=== PATIENT | female | born 1950 | race Caucasian/White ===

== ENCOUNTER 2017-01-20 07:44 | Emergency (ER) ==
[2017-01-20 07:56] VITALS: BP 165/92; TEMP 97; BMI 36.2
--- NOTE | 2017-01-20 08:17 | ED.PDOC ---
General ED Provider: Dr. GIANA JOYA JR Chief Complaint: Respiratory Complaint Stated Complaint: Chest congestion, cough. States chest feels "warm". No fever in triage. Voice hoarse. Throat feels "dry".[End 3 days 97.0 84 20 99% 164/92 5/ 10 Time Seen by Physician: 08:05 Mode of Arrival: Walk-In Information Source: Patient Exam Limitations: No limitations Nursing and Triage Documentation Reviewed and Agree: No Review of Systems - Review Of Systems Constitutional: Reports: Malaise, Weakness Eyes: Reports: No symptoms Ears, Nose, Mouth, Throat: Reports: No symptoms Respiratory: Reports: Cough Cardiac: Reports: Palpitations. Denies: Chest pain (warm feeling) GI: Reports: No symptoms : Reports: No symptoms Musculoskeletal: Reports: No symptoms Skin: Reports: No symptoms Neurological: Reports: No symptoms Endocrine: Reports: No symptoms Hematologic/Lymphatic: Reports: No symptoms All Other Systems: Other Past Medical History - Past Medical History Endocrine: Reports: None Cardiovascular: Reports: Hypertension Respiratory: Reports: PE (htn PE, Vena Cava filter) Hematological: Reports: None Gastrointestinal: Reports: None Genitourinary: Reports: None Neuro/Psych: Reports: None Musculoskeletal: Reports: None Cancer: Reports: None Last Menstrual Period: unknown - Surgical History General Surgical History: Reports: None - Family History Family History: Reports: Heart (mother 60s stroke or heart attack), Cancer ( father 70s unknown type) - Social History Smoking Status: Former smoker Hx Substance Use: No Alcohol Screening: Heavy Physical Exam - Physical Exam Appearance: Well-appearing, Obese Ill-appearing: Mild Pain Distress: Mild Eyes: CANELO, EOMI, Conjunctiva clear ENT: Ears normal, Nose normal, Oropharynx normal Neck: Supple Respiratory: Airway patent, Breath sounds clear, Breath sounds equal, Respirations nonlabored Cardiovascular: RRR, Pulses normal, No rub, No murmur GI/: Soft, Nontender, No masses, Bowel sounds normal, No Organomegaly Musculoskeletal: Normal strength, ROM intact, No edema, No calf tenderness Skin: Warm, Dry, Normal color Neurological: Sensation intact, Motor intact, Reflexes intact, Cranial nerves intact, Alert, Oriented Psychiatric: Affect appropriate, Mood appropriate Interpretation - Radiology Interpretation Radiology Interpretation By: Radiologist Radiology Results: Negative Exam Interpreted: CXR - EKG Interpretation Time of EKG #1: 09:20 Rate: Normal Rhythm: Sinus Ectopy: None Mcguffey: NL ST Segment: Other (t-wave flattening no inversion) Critical Care Note - Critical Care Note Total Time (mins): 0 Course - Course Hematology/Chemistry: 01/20/17 08:25 01/20/17 08:25 Orders, Labs, Meds: Lab Review 01/20/17 01/20/17 08:25 08:34 WBC 5.12 RBC 4.73 Hgb 14.5 Hct 42.8 MCV 90.5 MCH 30.7 MCHC 33.9 RDW Coeff of Armaan 13.8 Plt Count 259 Immature Gran % (Auto) 0.4 Neut % (Auto) 63.7 Lymph % (Auto) 23.0 [place] % (Auto) 9.6 Eos % (Auto) 2.5 Baso % (Auto) 0.8 Immature Gran # (Auto) 0.0 Neut # 3.3 Lymph # 1.2 [place] # 0.5 Eos # 0.1 Baso # 0.0 PT 42.8 H INR 4.16 H* Sodium 142 Potassium 4.1 Chloride 107 Carbon Dioxide 27 Anion Gap 12.1 BUN 15 Creatinine 0.85 Estimated GFR (MDRD) 67.00 BUN/Creatinine Ratio 17.64 Glucose 102 Calcium 9.2 Total Bilirubin 1.04 AST 20 ALT 22 Alkaline Phosphatase 69 Total Protein 7.4 Albumin 4.0 Globulin 3.4 Albumin/Globulin Ratio 1.18 Procalcitonin < 0.05 Influenza A (Rapid) Negative Influenza B (Rapid) Negative Orders Category Date Time Status EKG-(ED ONLY) Stat CARDIO 01/20/17 09:03 Completed CBC W/ AUTO DIFF Stat LAB 01/20/17 08:25 Completed COMPREHENSIVE METABOLIC PANEL Stat LAB 01/20/17 08:25 Completed MOLECULAR GROUP A STREP Stat LAB 01/20/17 08:25 Results PROCALCITONIN Stat LAB 01/20/17 08:25 Completed PT WITH INR Stat LAB 01/20/17 08:34 Completed RAPID FLU A/B Stat LAB 01/20/17 08:25 Completed STREP SCREEN Stat LAB 01/20/17 08:25 Results CHEST, 2 VIEWS PA & LAT Stat RADS 01/20/17 08:05 Completed Vital Signs: Temp Pulse Resp BP Pulse Ox 01/20/17 07:47 97.0 F L 84 20 165/92 H 99 Departure - Departure Time of Disposition: 09:21 Disposition: HOME SELF-CARE Discharge Problem: Anticoagulation excessive URTI (infection of the upper respiratory tract) Qualifiers: URI type: unspecified URI Qualifier Code: (J06.9) Acute upper respiratory infection, unspecified Allergic symptoms Qualifiers: Encounter type: initial encounter Qualifier Code: (T78.40XA) Allergy, unspecified, initial encounter Instructions: Safe Use of Anticoagulants (ED), Blood Thinners (ED), Upper Respiratory Infection (ED), Allergies (ED) Condition: Good Pt referred to PMD for follow-up: Yes Additional Instructions: recommend use Zyrtec or other antihistamine for 3 to 5 days (Benadryl also should be safe with Coumadin) increase fluids hold Coumadin today take 1/2 dose of Coumadin daily until back on usual diet inform PMD of protime and instructions follow up with PMD discuss symptoms and recommendations also recommend compare today's EKG with prior EKGs return if symptoms worsening Allergies/Adverse Reactions: Allergies No Known Allergies Allergy (Unverified 01/20/17 07:58) Home Medications: Ambulatory Orders Amlodipine Besylate [Norvasc] 5 mg PO DAILY 01/20/17 Warfarin Sodium [Coumadin] 7.5 mg PO DIRECTED 01/20/17
--- NOTE | 2017-01-20 08:32 | DI ---
EXAM: Chest two view, frontal and lateral views. HISTORY: Cough. COMPARISON: None available. FINDINGS: The heart size is normal. There is no pulmonary vascular congestion. Azygos fissure not ed. The lungs are clear. No pleural effusion or pneumothorax is seen. No acute osseous abnormalit y identified. IMPRESSION: No acute cardiopulmonary process.
[2017-01-20 08:42] LABS: BASOPHILS % (AUTO) 0.8 % (0.0-3.0); EOSINOPHILS # (AUTO) 0.1 K/ul (0.0-0.7); EOSINOPHILS % (AUTO) 2.5 % (0.0-7.0); HEMATOCRIT 42.8 % (37.0-47.0); HEMOGLOBIN 14.5 g/dl (12.0-16.0); IMMATURE GRANULOCYTE % (AUTO) 0.4 % (0.0-5.0); LYMPHOCYTES # (AUTO) 1.2 K/uL (0.60-3.4); MEAN CORPUSCULAR HEMOGLOBIN 30.7 pg (27.0-31.0); MEAN CORPUSCULAR HGB CONC 33.9 (31.8-35.4); MEAN CORPUSCULAR VOLUME 90.5 fl (81.0-99.0); MONOCYTES # (AUTO) 0.5 K/uL (0.4-2.0); MONOCYTES % (AUTO) 9.6 (0-10); NEUTROPHILS # (AUTO) 3.3 K/ul (2.0-6.9); NEUTROPHILS % (AUTO) 63.7; PLATELET COUNT 259 10^3/uL (140-440); RED BLOOD COUNT 4.73 10^6/ul (4.20-5.40); WHITE BLOOD COUNT 5.12 K/ul (4.6-10.2)
[2017-01-20 08:57] LABS: FLU INTERNAL QC INTERNAL QC VALID; RAPID FLU A NEGATIVE (NEGATIVE); RAPID FLU B NEGATIVE (NEGATIVE)
[2017-01-20 08:58] LABS: ALBUMIN/GLOBULIN RATIO 1.18; ANION GAP 12.1; BILIRUBIN,TOTAL 1.04 mg/dL (0.00-1.20); BUN/CREATININE RATIO 17.64; CALCIUM 9.2 mg/dL (8.2-10.2); CREATININE 0.85 mg/dL (0.60-1.30); POTASSIUM 4.1 mmol/L (3.5-5.10); TOTAL PROTEIN 7.4 g/dL (5.8-8.1)
[2017-01-20 09:42] LABS: PROTHROMBIN TIME 42.8 SEC (9.3-11.0)
== END 2017-01-20 10:16 | disposition home or self-care (01) ==
LOC: ED 07:44
DX: J06.9 Acute upper respiratory infection, unspecified (principal); T78.40XA Allergy, unspecified, initial encounter; I10 Essential (primary) hypertension; R00.2 Palpitations; Z79.01 Long term (current) use of anticoagulants; Z79.899 Other long term (current) drug therapy; Z86.711 Personal history of pulmonary embolism
CPT/HCPCS: 36415; 80053; 84145; 85025; 85610; 87651; 87804; 87880; 93005; 93010; 99283